=== PATIENT | male | born 1950 | race African-American/Black ===

== ENCOUNTER 2019-05-10 05:17 | Inpatient (IN) | payer MEDICARE, MEDICAID ==
[2019-05-10] VITALS (82 sets, daily range): BP systolic 83–171; BP diastolic 43–113
[~2019-05-10] VITALS: Ht 175.3 cm; Wt 138.3 kg
[~2019-05-10 05:17] MED LIST: HYDR-519 PO; VALS160T2
[2019-05-10] MEDS ORDERED: LEVETIRACETAM 500MG PREMIX 100 ML IV ONE (09:45)
[2019-05-10] MEDS ORDERED: DEXAMETHASONE 4MG/ML 1ML VIAL IV ONE ×2 (10:00→12:45)
[2019-05-10] MEDS ORDERED: DEXT 5%/LACTATED RINGERS 1,000 ML IV SCH (10:00)
[2019-05-10 10:23] LABS: BASOPHILS % 0.6 % (0.0-2.0); EOSINOPHILS % 2.3 % (0.0-5.0); HEMATOCRIT. 42.2 % (42.0-52.0); LYMPHOCYTES % 17.6 % (20.0-50.0); MEAN CORPUSCULAR HEMOGLOBIN 29.2 pg (28.0-32.0); MEAN CORPUSCULAR VOLUME 87.6 fL (80.0-94.0); MEAN PLATELET VOLUME 8.7 fl (7.4-10.4); MONOCYTES % 9.1 % (2.0-8.0); NEUTROPHILS % 70.4 % (40.0-76.0); PLATELET 186 x1000/uL (130-400); RED BLOOD CELL COUNT 4.81 mill/uL (4.7-6.1); RED CELL DISTRIBUTION WIDTH 16.5 % (11.6-14.6)
[2019-05-10 10:29] LABS: CHLORIDE 102 mEq/L (98-107)
[2019-05-10] MEDS ORDERED: MANNITOL 20% (20GM/100ML) BAG 500ML PREMIX IV NR ×2 (10:30)
[2019-05-10] MEDS ORDERED: NICARDIPINE 100 MG in SODIUM CHLORIDE 0.9% 60 ML IV PRN ×2 (10:30→11:00)
[2019-05-10 10:31] LABS: INR 1.1; PROTHROMBIN TIME 11.1 sec (9.6-11.0)
[2019-05-10 10:33] LABS: ETHANOL BLOOD < 10 mg/dL
[2019-05-10] MEDS ORDERED: DEXAMETHASONE 4MG/ML 1ML VIAL IV SCH (12:00)
[2019-05-10 12:09] LABS: CLARITY URINE CLEAR (CLEAR); COLOR URINE YELLOW (YELLOW); KETONES URINE NEGATIVE (NEGATIVE); LEUKOCYTE ESTERASE URINE NEGATIVE (NEGATIVE); NITRITE URINE NEGATIVE (NEGATIVE); OCCULT BLOOD URINE NEGATIVE (NEGATIVE); PH URINE 7.5 (4.5-8.0); PROTEIN URINE NEGATIVE (NEGATIVE); SPECIFIC GRAVITY URINE 1.012 (1.005-1.030); UROBILINOGEN URINE 0.2 E.U./dL (0.2-1.0)
[2019-05-10 12:41] LABS: *COCAINE SCREEN URINE PRESUMTIVE POSITIVE (NEGATIVE); METHADONE URINE SCREEN NEGATIVE (NEGATIVE)
[2019-05-10 12:42] LABS: CANNABINOID URINE SCREEN NEGATIVE (NEGATIVE); OPIATES URINE SCREEN NEGATIVE (NEGATIVE)
[2019-05-10 12:44] LABS: *AMPHETAMINES SCREEN URINE NEGATIVE (NEGATIVE); *BENZODIAZEPINES SCREEN URINE NEGATIVE (NEGATIVE)
[2019-05-10] MEDS ORDERED: MANNITOL 20% (20GM/100ML) BAG 500ML PREMIX IV ONE (12:45)
[2019-05-10 12:46] LABS: *BARBITURATES SCREEN URINE NEGATIVE (NEGATIVE)
[2019-05-10 12:49] LABS: PHENCYCLIDINE URINE SCREEN NEGATIVE (NEGATIVE)
[2019-05-10] MEDS ORDERED: MANNITOL 20% 125 ML IV ONE (13:15)
[2019-05-10] MEDS: DEXT 5%/LACTATED RINGERS 1,000 ML IV SCH (13:25)
[2019-05-10 13:38] LABS: BG BASE EXCESS 7.4 mmol/L (-2.0-2.0); BG DEOXYHEMOGLOBIN 4.3 % (0.0-5.0); BG METHEMOGLOBIN 0.2 % (0.0-1.5); BG OXYGEN SATURATION 95.6 % (92.0-98.5); BG OXYHEMOGLOBIN 92.5 % (94.0-97.0); BG PCO2 106.4 mmHg (35.0-45.0); BG PH 7.193 (7.350-7.450); BG PO2 94.8 mmHg (75.0-100.0); BG SAMPLE SITE RIGHT RADIAL; BG TOTAL HEMOGLOBIN 14.6 g/dL (12.0-18.0); BG VENT MODE MASK - SIMPLE
[2019-05-10] MEDS ORDERED: DEXAMETHASONE 4MG/ML 1ML VIAL IV NR (13:45)
[2019-05-10] MEDS ORDERED: ONDANSETRON HCL 4MG/2ML INJ IV PRN (13:45)
[2019-05-10] MEDS ORDERED: MORPHINE SULFATE 2 MG/ML CPJ (NOT FOR IM USE) IV PRN ×2 (14:00→14:08)
[2019-05-10] MEDS ORDERED: SODIUM CHLORIDE 0.9% 10ML VIAL ONE (14:06)
[2019-05-10] MEDS ORDERED: SUCCINYLCHOLINE CHLORIDE 200MG/10ML IV ONE (14:06)
[2019-05-10] MEDS ORDERED: ETOMIDATE 2MG/ML 10ML VIAL IV ONE (14:06)
[2019-05-10] MEDS ORDERED: VECURONIUM BROMIDE 10 MG/VIAL IV ONE (14:06)
[2019-05-10] MEDS: PROPOFOL 10MG/ML 100ML 100 ML IV PRN ×5 (14:31→22:58)
[2019-05-10] MEDS: MORPHINE SULFATE 2 MG/ML CPJ (NOT FOR IM USE) IV PRN (15:18)
[2019-05-10 16:01] LABS: BG BASE EXCESS 7.4 mmol/L (-2.0-2.0); BG CARBOXYHEMOGLOBIN 1.5 % (0.5-1.5); BG DEOXYHEMOGLOBIN 5.9 % (0.0-5.0); BG HCO3 ACT 33.8 mmol/L (22.0-26.0); BG METHEMOGLOBIN 0.4 % (0.0-1.5); BG OXYHEMOGLOBIN 92.2 % (94.0-97.0); BG PCO2 54.8 mmHg (35.0-45.0); BG PH 7.408 (7.350-7.450); BG PO2 71.8 mmHg (75.0-100.0); BG SAMPLE SITE RIGHT RADIAL; BG TIDAL VOLUME(mL) 500 mL; BG TOTAL HEMOGLOBIN 14.1 g/dL (12.0-18.0); BG VENT MODE VENT - A/C; BG VENT RATE 20 set
[2019-05-10] MEDS ORDERED: LEVETIRACETAM 500MG PREMIX 100 ML IV SCH (17:00)
[2019-05-10] MEDS: DEXAMETHASONE 4MG/ML 1ML VIAL IV SCH ×2 (18:03→23:01)
[2019-05-10] MEDS: IPRATROPIUM/ALBUTEROL 0.5-3(2.5)MG/3ML NEB HHN SCH (19:57)
[2019-05-10] MEDS ORDERED: LEVETIRACETAM 500 MG in SODIUM CHLORIDE 0.9% 100 ML IV SCH (21:00)
[2019-05-10] MEDS: NICARDIPINE 100 MG in SODIUM CHLORIDE 0.9% 60 ML IV PRN (21:37)
[2019-05-11] VITALS (95 sets, daily range): BP systolic 91–162; BP diastolic 55–100
[2019-05-11] MEDS: PROPOFOL 10MG/ML 100ML 100 ML IV PRN ×8 (01:54→23:58)
[2019-05-11] MEDS: DEXT 5%/LACTATED RINGERS 1,000 ML IV SCH (03:19)
[2019-05-11] MEDS: IPRATROPIUM/ALBUTEROL 0.5-3(2.5)MG/3ML NEB HHN SCH ×4 (03:55→21:03)
[2019-05-11] MEDS: DEXAMETHASONE 4MG/ML 1ML VIAL IV SCH ×4 (05:14→23:57)
[2019-05-11 05:47] LABS: BASOPHILS % 0.2 % (0.0-2.0); HEMATOCRIT. 41.4 % (42.0-52.0); HEMOGLOBIN. 13.7 g/dL (14.0-18.0); LYMPHOCYTES % 7.2 % (20.0-50.0); MEAN CORPUSCULAR HEMOGLOBIN 28.5 pg (28.0-32.0); MEAN CORPUSCULAR VOLUME 86.3 fL (80.0-94.0); MEAN PLATELET VOLUME 8.8 fl (7.4-10.4); MONOCYTES % 3.7 % (2.0-8.0); NEUTROPHILS % 88.9 % (40.0-76.0); PLATELET 211 x1000/uL (130-400); RED BLOOD CELL COUNT 4.79 mill/uL (4.7-6.1); RED CELL DISTRIBUTION WIDTH 16.2 % (11.6-14.6)
[2019-05-11 08:42] LABS: CHLORIDE 102 mEq/L (98-107)
[2019-05-11] MEDS: LEVETIRACETAM 500MG PREMIX 100 ML IV SCH ×2 (08:58→20:46)
[2019-05-11] MEDS: PANTOPRAZOLE SODIUM 40 MG/VIAL IV SCH (08:58)
[2019-05-11 09:10] LABS: BG BASE EXCESS -3.8 mmol/L (-2.0-2.0); BG CARBOXYHEMOGLOBIN 0.2 % (0.5-1.5); BG DEOXYHEMOGLOBIN 1.3 % (0.0-5.0); BG FRACTION INSPIRED OXYGEN 70; BG HCO3 ACT 21.1 mmol/L (22.0-26.0); BG METHEMOGLOBIN 0.3 % (0.0-1.5); BG OXYGEN SATURATION 98.7 % (92.0-98.5); BG OXYHEMOGLOBIN 98.2 % (94.0-97.0); BG PCO2 37.6 mmHg (35.0-45.0); BG PH 7.367 (7.350-7.450); BG PO2 221.7 mmHg (75.0-100.0); BG SAMPLE SITE RIGHT RADIAL; BG TIDAL VOLUME(mL) 500 mL; BG TOTAL HEMOGLOBIN 10.2 g/dL (12.0-18.0); BG VENT MODE VENT - A/C; BG VENT RATE 20 set
[2019-05-11] MEDS ORDERED: POTASSIUM CHLORIDE INJ 40 MEQ in DEXT 5% WATER 250 ML IV NR (11:00)
[2019-05-11] MEDS: NICARDIPINE 100 MG in SODIUM CHLORIDE 0.9% 60 ML IV PRN (12:02)
[2019-05-11 13:18] LABS: BG BASE EXCESS 6.2 mmol/L (-2.0-2.0); BG CARBOXYHEMOGLOBIN 0.8 % (0.5-1.5); BG DEOXYHEMOGLOBIN 7.9 % (0.0-5.0); BG FRACTION INSPIRED OXYGEN 40; BG METHEMOGLOBIN 0.2 % (0.0-1.5); BG OXYHEMOGLOBIN 91.1 % (94.0-97.0); BG PCO2 50.4 mmHg (35.0-45.0); BG PO2 64.6 mmHg (75.0-100.0); BG PRESSURE SUPPORT 8; BG SAMPLE SITE RIGHT RADIAL; BG TOTAL HEMOGLOBIN 14.4 g/dL (12.0-18.0); BG VENT MODE VENT - CPAP
[2019-05-11] MEDS: MORPHINE SULFATE 2 MG/ML CPJ (NOT FOR IM USE) IV PRN (14:53)
[2019-05-12] VITALS (86 sets, daily range): BP systolic 101–155; BP diastolic 48–95
[2019-05-12] MEDS: DEXT 5%/LACTATED RINGERS 1,000 ML IV SCH ×2 (00:45→20:39)
[2019-05-12] MEDS: IPRATROPIUM/ALBUTEROL 0.5-3(2.5)MG/3ML NEB HHN SCH ×4 (01:19→20:45)
[2019-05-12] MEDS: PROPOFOL 10MG/ML 100ML 100 ML IV PRN ×3 (02:52→09:13)
[2019-05-12 06:00] LABS: HEMATOCRIT. 39.3 % (42.0-52.0); MEAN CORPUSCULAR HEMOGLOBIN 28.8 pg (28.0-32.0); MEAN CORPUSCULAR VOLUME 86.9 fL (80.0-94.0); MEAN PLATELET VOLUME 8.6 fl (7.4-10.4); PLATELET 215 x1000/uL (130-400); RED BLOOD CELL COUNT 4.52 mill/uL (4.7-6.1); RED CELL DISTRIBUTION WIDTH 16.6 % (11.6-14.6)
[2019-05-12] MEDS: NICARDIPINE 100 MG in SODIUM CHLORIDE 0.9% 60 ML IV PRN ×2 (06:01→17:30)
[2019-05-12] MEDS: DEXAMETHASONE 4MG/ML 1ML VIAL IV SCH ×4 (06:12→23:37)
[2019-05-12 06:15] LABS: CHLORIDE 104 mEq/L (98-107)
[2019-05-12] MEDS: LEVETIRACETAM 500MG PREMIX 100 ML IV SCH ×2 (08:17→20:39)
[2019-05-12] MEDS: PANTOPRAZOLE SODIUM 40 MG/VIAL IV SCH (08:17)
[2019-05-12 08:48] LABS: PLATELET ESTIMATE NORMAL
[2019-05-12] MEDS ORDERED: LIDOCAINE HCL/PF 1% 2ML VIAL ONE (11:46)
[2019-05-12] MEDS ORDERED: POTASSIUM CHLORIDE INJ 40 MEQ in DEXT 5% WATER 250 ML IV SCH (12:00)
[2019-05-12 12:31] LABS: BG BASE EXCESS 4.8 mmol/L (-2.0-2.0); BG CARBOXYHEMOGLOBIN 0.5 % (0.5-1.5); BG FRACTION INSPIRED OXYGEN 40; BG HCO3 ACT 30.6 mmol/L (22.0-26.0); BG METHEMOGLOBIN 0.1 % (0.0-1.5); BG OXYGEN SATURATION 90.9 % (92.0-98.5); BG OXYHEMOGLOBIN 90.4 % (94.0-97.0); BG PCO2 49.7 mmHg (35.0-45.0); BG PH 7.407 (7.350-7.450); BG PO2 62.4 mmHg (75.0-100.0); BG PRESSURE SUPPORT 8; BG SAMPLE SITE RIGHT RADIAL; BG TOTAL HEMOGLOBIN 13.8 g/dL (12.0-18.0); BG VENT MODE VENT - CPAP
[2019-05-13] VITALS (99 sets, daily range): BP systolic 93–159; BP diastolic 38–92
[2019-05-13] MEDS: IPRATROPIUM/ALBUTEROL 0.5-3(2.5)MG/3ML NEB HHN SCH ×4 (03:37→20:44)
[2019-05-13] MEDS: NICARDIPINE 100 MG in SODIUM CHLORIDE 0.9% 60 ML IV PRN ×2 (03:37→18:16)
[2019-05-13 06:16] LABS: HEMATOCRIT. 39.3 % (42.0-52.0); HEMOGLOBIN. 12.9 g/dL (14.0-18.0); MEAN CORPUSCULAR HEMOGLOBIN 28.7 pg (28.0-32.0); MEAN CORPUSCULAR VOLUME 87.6 fL (80.0-94.0); MEAN PLATELET VOLUME 8.4 fl (7.4-10.4); PLATELET 212 x1000/uL (130-400); RED BLOOD CELL COUNT 4.48 mill/uL (4.7-6.1); RED CELL DISTRIBUTION WIDTH 16.6 % (11.6-14.6)
[2019-05-13 06:18] LABS: CHLORIDE 107 mEq/L (98-107)
[2019-05-13] MEDS: DEXAMETHASONE 4MG/ML 1ML VIAL IV SCH ×4 (06:26→23:10)
[2019-05-13] MEDS: LEVETIRACETAM 500MG PREMIX 100 ML IV SCH ×2 (08:41→21:00)
[2019-05-13] MEDS: PANTOPRAZOLE SODIUM 40 MG/VIAL IV SCH (08:41)
[2019-05-13] MEDS: AMLODIPINE 5MG TABLET PO SCH ×2 (08:49→21:01)
[2019-05-13] MEDS: LOSARTAN POTASSIUM 100 MG TABLET PO SCH (08:49)
[2019-05-13 09:17] LABS: PLATELET ESTIMATE NORMAL
[2019-05-13] MEDS: DOCUSATE SODIUM 250MG CAPSULE PO SCH (12:30)
[2019-05-13] MEDS: TAMSULOSIN HCL 0.4MG SR CAPSULE PO SCH (14:15)
[2019-05-13] MEDS: CLONIDINE 0.1MG TABLET PO PRN (14:15)
[2019-05-13] MEDS ORDERED: ACETAMINOPHEN 325MG TABLET PO PRN (15:30)
[2019-05-13] MEDS: DEXT 5%/LACTATED RINGERS 1,000 ML IV SCH (20:07)
[2019-05-14] VITALS (61 sets, daily range): BP systolic 110–186; BP diastolic 48–103
[2019-05-14] MEDS: IPRATROPIUM/ALBUTEROL 0.5-3(2.5)MG/3ML NEB HHN SCH ×4 (02:20→20:55)
[2019-05-14] MEDS: DEXAMETHASONE 4MG/ML 1ML VIAL IV SCH ×2 (05:08→17:22)
[2019-05-14 05:55] LABS: HEMATOCRIT. 40.2 % (42.0-52.0); HEMOGLOBIN. 12.9 g/dL (14.0-18.0); MEAN CORPUSCULAR HEMOGLOBIN 28.4 pg (28.0-32.0); MEAN CORPUSCULAR VOLUME 88.5 fL (80.0-94.0); MEAN PLATELET VOLUME 8.5 fl (7.4-10.4); PLATELET 220 x1000/uL (130-400); RED BLOOD CELL COUNT 4.55 mill/uL (4.7-6.1); RED CELL DISTRIBUTION WIDTH 16.4 % (11.6-14.6)
[2019-05-14 06:08] LABS: CHLORIDE 106 mEq/L (98-107)
[2019-05-14 07:30] LABS: PLATELET ESTIMATE NORMAL
[2019-05-14] MEDS: MORPHINE SULFATE 2 MG/ML CPJ (NOT FOR IM USE) IV PRN ×4 (08:18→22:12)
[2019-05-14] MEDS: PANTOPRAZOLE SODIUM 40 MG/VIAL IV SCH (09:02)
[2019-05-14] MEDS: DOCUSATE SODIUM 250MG CAPSULE PO SCH (09:02)
[2019-05-14] MEDS: LEVETIRACETAM 500MG PREMIX 100 ML IV SCH ×2 (09:02→21:03)
[2019-05-14] MEDS: LOSARTAN POTASSIUM 100 MG TABLET PO SCH (09:03)
[2019-05-14] MEDS: AMLODIPINE 5MG TABLET PO SCH ×2 (09:03→21:04)
[2019-05-14] MEDS: TAMSULOSIN HCL 0.4MG SR CAPSULE PO SCH (09:03)
[2019-05-14] MEDS: CLONIDINE 0.1MG TABLET PO PRN (22:13)
[2019-05-15] VITALS (18 sets, daily range): BP systolic 102–165; BP diastolic 17–124
[2019-05-15] MEDS: CLONIDINE 0.1MG TABLET PO PRN (00:31)
[2019-05-15] MEDS: IPRATROPIUM/ALBUTEROL 0.5-3(2.5)MG/3ML NEB HHN SCH ×3 (02:20→14:26)
[2019-05-15] MEDS: MORPHINE SULFATE 2 MG/ML CPJ (NOT FOR IM USE) IV PRN (03:11)
[2019-05-15 06:10] LABS: HEMATOCRIT. 40.4 % (42.0-52.0); HEMOGLOBIN. 13.1 g/dL (14.0-18.0); MEAN CORPUSCULAR HEMOGLOBIN 28.6 pg (28.0-32.0); MEAN CORPUSCULAR VOLUME 88.2 fL (80.0-94.0); MEAN PLATELET VOLUME 8.5 fl (7.4-10.4); PLATELET 230 x1000/uL (130-400); RED BLOOD CELL COUNT 4.58 mill/uL (4.7-6.1); RED CELL DISTRIBUTION WIDTH 16.3 % (11.6-14.6)
[2019-05-15 06:31] LABS: CHLORIDE 104 mEq/L (98-107)
[2019-05-15] MEDS: DEXAMETHASONE 4MG/ML 1ML VIAL IV SCH (06:40)
[2019-05-15] MEDS ORDERED: LOSA100T32 MT (09:31)
[2019-05-15] MEDS ORDERED: KEPP500 MT (09:31)
[2019-05-15] MEDS ORDERED: HYDR-4135 MT (09:31)
[2019-05-15] MEDS ORDERED: AMLO5TAB88 MT (09:31)
[2019-05-15] MEDS: LEVETIRACETAM 500MG PREMIX 100 ML IV SCH (09:37)
[2019-05-15] MEDS: DOCUSATE SODIUM 250MG CAPSULE PO SCH (09:37)
[2019-05-15] MEDS: TAMSULOSIN HCL 0.4MG SR CAPSULE PO SCH (09:37)
[2019-05-15] MEDS: LOSARTAN POTASSIUM 100 MG TABLET PO SCH (09:37)
[2019-05-15] MEDS: AMLODIPINE 5MG TABLET PO SCH (09:38)
[2019-05-15] MEDS: PANTOPRAZOLE SODIUM 40 MG/VIAL IV SCH (09:38)
[2019-05-15 16:11] LABS: NUCLEATED RED BLOOD CELLS 1 /100 WBC; PLATELET ESTIMATE NORMAL
[2019-05-15] MEDS ORDERED: DEXAMETHASONE 4MG/ML 1ML VIAL IV SCH (18:00)
== END 2019-05-15 15:35 | disposition hospice, home (50) | DRG 64 ==
LOC: ER 06:36 → EDBEDREQ 10:08 → EDBEDREQTM 10:08 → EDBEDREQSVC 10:08 → MICUSO 11:00 → EDBEDREQ 11:04 → EDBEDREQTM 11:04 → ENRESERV 12:02 → CANRESERV 12:43
PROVIDERS: ADMIT Internal Medicine; ATTEND Internal Medicine
PROC: 5A1945Z Respiratory Ventilation, 24-96 Consecutive Hours (ICD-10-PCS; 2019-05-10)
PROC: 0BH17EZ Insertion of Endotracheal Airway into Trachea, Via Natural or Artificial Opening (ICD-10-PCS; 2019-05-10)
PROC: 02HV33Z Insertion of Infusion Device into Superior Vena Cava, Percutaneous Approach (ICD-10-PCS; principal; 2019-05-12)
PROC: B548ZZA Ultrasonography of Superior Vena Cava, Guidance (ICD-10-PCS; 2019-05-12)
PROC: 5A09357 Assistance with Respiratory Ventilation, Less than 24 Consecutive Hours, Continuous Positive Airway Pressure (ICD-10-PCS; 2019-05-13)
DX: I61.0 Nontraumatic intracerebral hemorrhage in hemisphere, subcortical (principal); G93.41 Metabolic encephalopathy; J96.01 Acute respiratory failure with hypoxia; E87.2 Acidosis; E66.2 Morbid (severe) obesity with alveolar hypoventilation; L97.229 Non-pressure chronic ulcer of left calf with unspecified severity; L97.219 Non-pressure chronic ulcer of right calf with unspecified severity; I69.351 Hemiplegia and hemiparesis following cerebral infarction affecting right dominant side; Z68.42 Body mass index [BMI] 45.0-49.9, adult; E78.1 Pure hyperglyceridemia; E78.5 Hyperlipidemia, unspecified; E87.6 Hypokalemia; W19.XXXA Unspecified fall, initial encounter; R61 Generalized hyperhidrosis; I10 Essential (primary) hypertension; F14.10 Cocaine abuse, uncomplicated; N40.0 Benign prostatic hyperplasia without lower urinary tract symptoms; Z79.899 Other long term (current) drug therapy; Z71.3 Dietary counseling and surveillance; Z71.51 Drug abuse counseling and surveillance of drug abuser; Z99.3 Dependence on wheelchair; Y93.89 Activity, other specified; Y92.89 Other specified places as the place of occurrence of the external cause; Y99.8 Other external cause status
CPT/HCPCS: 36415; 36600; 71045; 76937; 80048; 80053; 80061; 80305; 80320; 81003; 82375; 82805; 83880; 84478; 84484; 85025; 92610; 93005; 93970; 94002; 94003; 94640; 94660; 96365; 97162; 97166; 97530; 99285; C1725; C9113; J0330; J1100; J1953; J2270; J2704; J3480; J3490; J7050; J7060; J7121; J7620; A4315; G0480